=== PATIENT | female | born 2000 | race Two or more races ===

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

== ENCOUNTER 2022-05-05 19:03 | Emergency (ER) | payer OTHER ==
[~2022-05-05] VITALS: Ht 157.5 cm; Wt 63.5 kg
== END 2022-05-05 23:04 | disposition home or self-care (01) ==
LOC: ER 19:03
DX: N39.0 Urinary tract infection, site not specified (principal); R50.9 Fever, unspecified; Z20.822 Contact with and (suspected) exposure to COVID-19

== ENCOUNTER 2022-08-09 17:10 | Emergency (ER) | payer OTHER ==
[~2022-08-09] VITALS: Ht 157.5 cm; Wt 61.2 kg
[2022-08-09] MEDS ORDERED: ZOFRAN8 MG PO (19:03)
[2022-08-09] MEDS ORDERED: PEPCID AC20 MG PO (19:03)
== END 2022-08-09 19:13 | disposition home or self-care (01) ==
LOC: ER 17:10
DX: B34.9 Viral infection, unspecified (principal); R53.81 Other malaise; R06.02 Shortness of breath; R11.10 Vomiting, unspecified; G44.89 Other headache syndrome; R11.0 Nausea; Z20.822 Contact with and (suspected) exposure to COVID-19

== ENCOUNTER 2023-03-03 07:45 | Emergency (ER) | payer OTHER ==
[~2023-03-03] VITALS: Ht 157.5 cm; Wt 66.2 kg
[~2023-03-03 07:45] MED LIST changes: +PEPCID AC20 MG PO; +ZOFRAN8 MG PO
[2023-03-03 09:21] LABS: URINE APPEARANCE Clear; URINE BACTERIA 336.3 uL (0.0-1933); URINE BILIRRUBIN Negative (NEGATIVE); URINE BLOOD Trace; URINE COLOR Yellow; URINE EPITHELIAL CELLS 21.4 uL (0.0-38.8); URINE GLUCOSE Negative (NEGATIVE); URINE LEUKOCYTE Small; URINE NITRATE Negative; URINE PROTEIN Trace (NEGATIVE); URINE RBC 38.8 uL (0.0-20.8); URINE WBC 73.5 uL (0.0-23.2)
[2023-03-03 10:08] LABS: CALCIUM 9.3 mg/dL (8.5-10.1); CREATININE SERUM 0.59 mg/dL (0.55-1.02); GFR 127.46; POTASSIUM 4.14 mEq/L (3.5-5.1)
[2023-03-03 10:29] LABS: HEMATOCRIT 40.1 % (36.0-45.00); HEMOGLOBIN 14.3 g/dL (12.0-15.00); MEAN CELL VOLUME 89.5 fL (80.00-100.00); MEAN CORPUSCULAR HGB CONC 35.7 g/dl (32.0-36.0); PLATELET COUNT 249 K/uL (150-450); RED BLOOD COUNT 4.48 M/uL (4.00-6.00); RED CELL DISTRIBUTION WIDTH 12.7 % (11.5-14.5)
== END 2023-03-03 21:43 | disposition home or self-care (01) ==
LOC: ER 07:45
PROVIDERS: General Practice
DX: K80.50 Calculus of bile duct without cholangitis or cholecystitis without obstruction (principal); Z88.6 Allergy status to analgesic agent; N83.202 Unspecified ovarian cyst, left side

== ENCOUNTER 2023-10-16 12:39 | Emergency (ER) | payer OTHER ==
[~2023-10-16] VITALS: Ht 157.5 cm; Wt 57.6 kg
[2023-10-16] MEDS ORDERED: AZESCO TABLET1 EACH PO (13:02)
[2023-10-16 15:33] LABS: HEMATOCRIT 37.7 % (36.0-45.00); HEMOGLOBIN 13.4 g/dL (12.0-15.00); MEAN CORPUSCULAR HGB CONC 35.5 g/dl (32.0-36.0); PLATELET COUNT 283 K/uL (150-450); RED BLOOD COUNT 4.19 M/uL (4.00-6.00); RED CELL DISTRIBUTION WIDTH 12.1 % (11.5-14.5)
== END 2023-10-16 17:04 | disposition home or self-care (01) ==
LOC: ER 12:40
PROVIDERS: General Practice
DX: O20.8 Other hemorrhage in early pregnancy (principal); Z3A.08 8 weeks gestation of pregnancy

== ENCOUNTER 2023-10-31 04:25 | Emergency (ER) | payer OTHER ==
[~2023-10-31] VITALS: Ht 157.5 cm; Wt 56.7 kg
[~2023-10-31 04:25] MED LIST changes: +AZESCO TABLET1 EACH PO
[2023-10-31] MEDS ORDERED: FAMOTIDINE/PF 20 MG/2 ML VIAL IV PUSH STA (04:50)
[2023-10-31] MEDS ORDERED: PROMETHAZINE HCL 50 MG/ML AMPUL IM STA (04:50)
[2023-10-31] MEDS ORDERED: 0.9 % SODIUM CHLORIDE 1,000 ML IV ONE (05:00)
[2023-10-31 06:15] LABS: HEMOGLOBIN 12.1 g/dL (12.0-15.00); MEAN CELL VOLUME 88.1 fL (80.00-100.00); MEAN CORPUSCULAR HEMOGLOBIN 32.4 pg (27.00-32.0); MEAN CORPUSCULAR HGB CONC 36.8 g/dl (32.0-36.0); PLATELET COUNT 246 K/uL (150-450); RED BLOOD COUNT 3.74 M/uL (4.00-6.00); RED CELL DISTRIBUTION WIDTH 12.7 % (11.5-14.5)
[2023-10-31 06:35] LABS: ALBUMIN 3.1 gm/dL (3.4-5.0); BILIRUBIN TOTAL 0.31 mg/dL (0.3-1.2); CALCIUM 8.9 mg/dL (8.5-10.1); CREATININE SERUM 0.51 mg/dL (0.55-1.02); GFR 149.44; GLOBULINA 3.8 G/DL (2.4-3.5); TOTAL PROTEIN 6.9 gm/dL (6.4-8.2)
[2023-10-31 06:44] LABS: POTASSIUM 3.48 mEq/L (3.5-5.1)
[2023-10-31 10:56] LABS: URINE APPEARANCE Cloudy; URINE BILIRRUBIN Negative (NEGATIVE); URINE BLOOD Negative; URINE COLOR Yellow; URINE GLUCOSE Negative (NEGATIVE); URINE LEUKOCYTE Large; URINE NITRATE Negative; URINE PROTEIN Negative (NEGATIVE); URINE UROBILINOGEN 0.2 E.U./dl
[2023-10-31 11:02] LABS: URINE BACTERIA 5438.1 uL (0.0-1933); URINE EPITHELIAL CELLS 61.6 uL (0.0-38.8); URINE WBC 590.1 uL (0.0-23.2)
[2023-10-31] MEDS ORDERED: CEFTRIAXONE SODIUM 1,000 MG VIAL IV ONE (13:45)
== END 2023-10-31 14:21 | disposition home or self-care (01) ==
LOC: ER 04:25
PROVIDERS: General Practice
DX: O21.8 Other vomiting complicating pregnancy (principal); Z3A.10 10 weeks gestation of pregnancy

== ENCOUNTER 2023-11-30 19:07 | Emergency (ER) | payer OTHER ==
[~2023-11-30] VITALS: Ht 157.5 cm; Wt 56.7 kg
[2023-11-30 20:49] LABS: HEMATOCRIT 32.1 % (36.0-45.00); HEMOGLOBIN 11.6 g/dL (12.0-15.00); MEAN CORPUSCULAR HGB CONC 36.2 g/dl (32.0-36.0); PLATELET COUNT 222 K/uL (150-450); RED BLOOD COUNT 3.53 M/uL (4.00-6.00); RED CELL DISTRIBUTION WIDTH 13.5 % (11.5-14.5)
[2023-11-30 21:15] LABS: INR 0.97; PARTIAL THROMBOPLASTIN TIME 29.6 SECONDS (22.0-34.0); PROTHROMBIN TIME 10.2 SECONDS (9.0-11.5)
[2023-11-30 21:35] LABS: ALBUMIN 3.2 gm/dL (3.4-5.0); BILIRUBIN TOTAL 0.32 mg/dL (0.3-1.2); CALCIUM 8.9 mg/dL (8.5-10.1); CREATININE SERUM 0.4 mg/dL (0.55-1.02); GFR 197.8; GLOBULINA 3.6 G/DL (2.4-3.5); POTASSIUM 3.52 mEq/L (3.5-5.1); TOTAL PROTEIN 6.8 gm/dL (6.4-8.2)
[2023-11-30 22:27] LABS: URINE APPEARANCE Turbid; URINE BILIRRUBIN Small (NEGATIVE); URINE BLOOD Trace; URINE COLOR Dark Yellow; URINE GLUCOSE Negative (NEGATIVE); URINE KETONE Trace (NEGATIVE); URINE LEUKOCYTE Moderate; URINE NITRATE Negative; URINE PROTEIN 30 (NEGATIVE)
[2023-11-30 22:31] LABS: URINE BACTERIA 2770.7 uL (0.0-1933); URINE CAST 7.48 uL (0.0-1.40); URINE RBC 13.4 uL (0.0-20.8); URINE WBC 575.6 uL (0.0-23.2)
[2023-11-30 23:09] LABS: URINE YEAST NEGATIVE /hpf
== END 2023-12-01 00:45 | disposition home or self-care (01) ==
LOC: ER 19:08
PROVIDERS: General Practice
DX: O44.32 Partial placenta previa with hemorrhage, second trimester (principal); O23.42 Unspecified infection of urinary tract in pregnancy, second trimester; N39.0 Urinary tract infection, site not specified; Z3A.14 14 weeks gestation of pregnancy

== ENCOUNTER 2024-04-27 14:03 | Outpatient (CLI) | payer OTHER ==
[~2024-04-27] VITALS: Ht 157.5 cm; Wt 70.8 kg
[2024-04-27 13:20] VITALS: BP 91/65
[2024-04-27] MEDS ORDERED: RINGERS SOLUTION,LACTATED 1,000 ML IV SCH (14:15)
[2024-04-27 14:26] LABS: HEMATOCRIT 33.1 % (36.0-45.00); HEMOGLOBIN 11.6 g/dL (12.0-15.00); MEAN CELL VOLUME 87.3 fL (80.00-100.00); MEAN CORPUSCULAR HEMOGLOBIN 30.7 pg (27.00-32.0); MEAN CORPUSCULAR HGB CONC 35.2 g/dl (32.0-36.0); PLATELET COUNT 298 K/uL (150-450); RED BLOOD COUNT 3.79 M/uL (4.00-6.00); RED CELL DISTRIBUTION WIDTH 13.4 % (11.5-14.5)
[2024-04-27 14:26] LABS: URINE APPEARANCE Turbid; URINE BILIRRUBIN Small (NEGATIVE); URINE BLOOD Moderate; URINE COLOR Dark Yellow; URINE GLUCOSE Negative (NEGATIVE); URINE KETONE Trace (NEGATIVE); URINE LEUKOCYTE Large; URINE NITRATE Negative; URINE PROTEIN 30 (NEGATIVE)
[2024-04-27 14:29] LABS: URINE EPITHELIAL CELLS 20.1 uL (0.0-38.8); URINE RBC 6.7 uL (0.0-20.8)
[2024-04-27 14:49] LABS: URINE BACTERIA > 9821.5 uL (0.0-1933); URINE CAST > 21.83 uL (0.0-1.40)
[2024-04-27 14:51] LABS: URINE TRICHOMONAS MODERATE
[2024-04-27 14:57] LABS: INR 0.94; PARTIAL THROMBOPLASTIN TIME 28.8 SECONDS (22.0-34.0); PROTHROMBIN TIME 10.3 SECONDS (9.0-11.5)
[2024-04-27 15:02] LABS: ALBUMIN 2.7 gm/dL (3.4-5.0); BILIRUBIN TOTAL 0.35 mg/dL (0.3-1.2); CALCIUM 8.9 mg/dL (8.5-10.1); CREATININE SERUM 0.45 mg/dL (0.55-1.02); GFR 172.66; GLOBULINA 3.8 G/DL (2.4-3.5); POTASSIUM 4.06 mEq/L (3.5-5.1); TOTAL PROTEIN 6.5 gm/dL (6.4-8.2)
[2024-04-27 15:05] VITALS: BP 98/64
[2024-04-27] MEDS ORDERED: METRONIDAZOLE/SODIUM CHLORIDE 500 MG/100 ML PIGGYBACK IV NR (16:00)
[2024-04-27 18:08] VITALS: BP 117/88; O2SAT 98
[2024-04-27] MEDS ORDERED: GUAIFENESIN 200 MG/10 ML BLIST.PACK PO SCH (18:13)
[2024-04-27] MEDS ORDERED: CEFAZOLIN SODIUM 1,000 MG VIAL IV ONE (18:15)
[2024-04-27] MEDS ORDERED: CEFAZOLIN SODIUM 1,000 MG VIAL ONE ×2 (18:26→23:24)
[2024-04-27 23:40] VITALS: BP 90/60
[2024-04-28] MEDS ORDERED: CEFAZOLIN SODIUM 1,000 MG VIAL IV SCH
[2024-04-28 03:45] VITALS: BP 95/57
[2024-04-28] MEDS ORDERED: CEFAZOLIN SODIUM 1,000 MG VIAL ONE (04:58)
[2024-04-28 06:15] VITALS: BP 92/62; O2SAT 98
[2024-04-28 09:46] VITALS: BP 92/62
== END 2024-04-28 09:59 | disposition home or self-care (01) ==
LOC: OBS/DEL 14:03
PROVIDERS: Specialist; ATTEND Obstetrics & Gynecology
DX: O26.853 Spotting complicating pregnancy, third trimester (principal); O23.43 Unspecified infection of urinary tract in pregnancy, third trimester; N39.0 Urinary tract infection, site not specified; Z3A.35 35 weeks gestation of pregnancy

== ENCOUNTER 2024-05-13 08:45 | Outpatient (CLI) | payer OTHER | END 2024-05-13 08:49 | disposition home or self-care (01) | LOC: PRENATAL 08:45 | PROVIDERS: ATTEND Obstetrics & Gynecology Maternal & Fetal Medicine | DX: O36.8199 Decreased fetal movements, unspecified trimester, other fetus (principal); O44.00 Complete placenta previa NOS or without hemorrhage, unspecified trimester; O36.5990 Maternal care for other known or suspected poor fetal growth, unspecified trimester, not applicable or unspecified; Z3A.36 36 weeks gestation of pregnancy ==

== ENCOUNTER 2024-05-25 14:09 | Inpatient (IN) | payer OTHER ==
[~2024-05-25] VITALS: Ht 157.5 cm; Wt 66.7 kg
[2024-05-25 13:57] VITALS: BP 99/66
[2024-05-25] MEDS ORDERED: RINGERS SOLUTION,LACTATED 1,000 ML IV SCH (14:45)
[2024-05-25 14:54] LABS: URINE APPEARANCE Cloudy; URINE BILIRRUBIN Negative (NEGATIVE); URINE BLOOD Negative; URINE COLOR Dark Yellow; URINE GLUCOSE Negative (NEGATIVE); URINE KETONE Negative (NEGATIVE); URINE LEUKOCYTE Large; URINE NITRATE Negative; URINE PROTEIN Trace (NEGATIVE)
[2024-05-25 14:58] LABS: URINE BACTERIA 2604.5 uL (0.0-1933); URINE EPITHELIAL CELLS 87.5 uL (0.0-38.8); URINE WBC 511.2 uL (0.0-23.2)
[2024-05-25 15:16] LABS: HEMATOCRIT 35.4 % (36.0-45.00); MEAN CELL VOLUME 86.3 fL (80.00-100.00); MEAN CORPUSCULAR HEMOGLOBIN 29.2 pg (27.00-32.0); MEAN CORPUSCULAR HGB CONC 33.8 g/dl (32.0-36.0); PLATELET COUNT 302 K/uL (150-450); RED CELL DISTRIBUTION WIDTH 13.5 % (11.5-14.5)
[2024-05-25 15:22] VITALS: BP 116/81
[2024-05-25 15:30] LABS: ALBUMIN 2.7 gm/dL (3.4-5.0); BILIRUBIN TOTAL 0.4 mg/dL (0.3-1.2); CALCIUM 9.3 mg/dL (8.5-10.1); CREATININE SERUM 0.51 mg/dL (0.55-1.02); GFR 149.44; GLOBULINA 3.8 G/DL (2.4-3.5); POTASSIUM 4.11 mEq/L (3.5-5.1); TOTAL PROTEIN 6.5 gm/dL (6.4-8.2)
[2024-05-25 16:00] LABS: URINE CAST 0.14 uL (0.0-1.40); URINE RBC 1.7 uL (0.0-20.8)
[2024-05-25] MEDS ORDERED: FAMOTIDINE/PF 20 MG/2 ML VIAL IV PUSH SCH (17:00)
[2024-05-25] MEDS ORDERED: ACETAMINOPHEN 500 MG GEL..CAP PO ONE (19:27)
[2024-05-25] MEDS ORDERED: CEFAZOLIN SODIUM 1,000 MG VIAL ONE (19:27)
[2024-05-25] MEDS ORDERED: DIPHENHYDRAMINE HCL 25 MG CAPSULE PO STA (20:15)
[2024-05-25] MEDS ORDERED: ACETAMINOPHEN 500 MG GEL..CAP PO PRN (20:30)
[2024-05-25] MEDS ORDERED: CEFAZOLIN SODIUM 1,000 MG VIAL IV SCH (20:38)
[2024-05-25 20:50] VITALS: BP 96/69
[2024-05-25 23:21] VITALS: BP 110/74
[2024-05-26] VITALS (7 sets, daily range): BP systolic 90–123; BP diastolic 60–80; O2SAT 99
[2024-05-26] MEDS ORDERED: AMPICILLIN SODIUM 2,000 MG in 0.9 % SODIUM CHLORIDE 100 ML IV SCH
[2024-05-27] VITALS (10 sets, daily range): BP systolic 106–139; BP diastolic 67–87
[2024-05-27] MEDS ORDERED: OXYTOCIN 20 UNITS/500ML RL PIGGYBAG IV SCH (10:30)
[2024-05-27] MEDS ORDERED: OXYTOCIN 500 ML IV SCH (11:30)
[2024-05-27] MEDS ORDERED: OXYTOCIN 10 UNITS/ML VIAL ONE (12:13)
[2024-05-27] MEDS ORDERED: MEPERIDINE HCL/PF 25 MG/ML VIAL IV STA (15:22)
[2024-05-27] MEDS ORDERED: PROMETHAZINE HCL 25 MG/ML AMPUL ONE (15:22)
[2024-05-27] MEDS ORDERED: PROMETHAZINE HCL 25 MG/ML AMPUL IV STA (17:30)
[2024-05-27] MEDS ORDERED: OXYTOCIN 20 UNITS/1000ML RL PIGGYBAG IV ONE (17:42)
[2024-05-27] MEDS ORDERED: ERYTHROMYCIN BASE OPHT 1GM EACH TUBE OP ONE ×2 (17:42→19:25)
[2024-05-27] MEDS ORDERED: CHLORHEXIDINE GLUCONATE 120 ML BOTTLE TOP ONE (17:42)
[2024-05-27] MEDS ORDERED: LIDOCAINE HCL 1% 10ML VIAL ONE (17:42)
[2024-05-27] MEDS ORDERED: LIDOCAINE HCL 1% 10ML VIAL IJ ONE (19:20)
[2024-05-27] MEDS ORDERED: CHLORHEXIDINE GLUCONATE 120 ML BOTTLE TP SCH (21:15)
[2024-05-27] MEDS ORDERED: OXYTOCIN 1,000 ML IV SCH (21:15)
[2024-05-27] MEDS ORDERED: ACETAMINOPHEN 500 MG GEL..CAP PO PRN (21:15)
[2024-05-28 00:22] VITALS: BP 106/66
[2024-05-28 01:45] LABS: HEMATOCRIT 32.4 % (36.0-45.00); MEAN CELL VOLUME 86.6 fL (80.00-100.00); MEAN CORPUSCULAR HEMOGLOBIN 29.4 pg (27.00-32.0); MEAN CORPUSCULAR HGB CONC 33.9 g/dl (32.0-36.0); PLATELET COUNT 273 K/uL (150-450); RED BLOOD COUNT 3.74 M/uL (4.00-6.00); RED CELL DISTRIBUTION WIDTH 13.5 % (11.5-14.5)
[2024-05-28 05:03] VITALS: BP 103/67
[2024-05-28 08:16] VITALS: BP 109/67
[2024-05-28] MEDS ORDERED: PNV,CALCIUM 72/IRON/FOLIC ACID 1 TAB TABLET PO SCH (09:00)
[2024-05-28 16:16] VITALS: BP 114/70
[2024-05-29] VITALS: BP 122/80
[2024-05-29 08:32] VITALS: BP 121/77
== END 2024-05-29 14:02 | disposition home or self-care (01) | DRG 807 ==
LOC: OBS/DEL 14:09 → LDR 05-26 13:26 → OB/GYN 05-27 20:21
PROVIDERS: ADMIT Obstetrics & Gynecology; ATTEND Obstetrics & Gynecology
PROC: 10E0XZZ Delivery of Products of Conception, External Approach (ICD-10-PCS; principal; 2024-05-26)
PROC: 0W8NXZZ Division of Female Perineum, External Approach (ICD-10-PCS; 2024-05-26)
PROC: 4A1HXCZ Monitoring of Products of Conception, Cardiac Rate, External Approach (ICD-10-PCS; 2024-05-26)
DX: O80 Encounter for full-term uncomplicated delivery (principal); Z37.0 Single live birth; Z3A.39 39 weeks gestation of pregnancy